=== PATIENT | female | born 2000 | race Caucasian/White ===

== ENCOUNTER 2021-05-30 18:55 | Emergency (ER) | payer BC, OTHER ==
[2021-05-30] MEDS ORDERED: Acetaminophen 500 MG TAB ONE (19:19)
[2021-05-30] MEDS ORDERED: Lidocaine 1% (PF) 30 ML VIAL ONE (19:25)
[2021-05-30] MEDS ORDERED: Bacitracin 1 PK ONE (19:26)
== END 2021-05-30 20:30 | disposition home or self-care (01) ==
LOC: CSHERS 18:55
DX: S61.213A Laceration without foreign body of left middle finger without damage to nail, initial encounter (principal); D50.9 Iron deficiency anemia, unspecified; F84.0 Autistic disorder; W23.0XXA Caught, crushed, jammed, or pinched between moving objects, initial encounter; Z79.899 Other long term (current) drug therapy
CPT/HCPCS: 12001; J2001